=== PATIENT | female | born 1980 | race Caucasian/White ===

== ENCOUNTER 2018-02-11 08:18 | Emergency (ER) | payer OTHER ==
[~2018-02-11] VITALS: Ht 157.5 cm; Wt 83.0 kg
[2018-02-11] MEDS ORDERED: ALBU18HF INH (08:52)
[2018-02-11] MEDS ORDERED: PANT40TA5 PO (08:52)
[2018-02-11 09:50] LABS: BASOPHILS # (AUTO) 0.05 x10^3/uL (0-0.1); BASOPHILS % (AUTO) 1 % (0-1); EOSINOPHILS # (AUTO) 0.23 x10^3/uL (0-0.4); EOSINOPHILS % (AUTO) 4 % (1-7); LYMPHOCYTES # (AUTO) 1.69 x10^3/uL (1-3.4); LYMPHOCYTES % (AUTO) 31 % (22-44); MD NO; MEAN CORPUSCULAR HEMOGLOBIN 21.5 pg (27.0-34.8); MEAN CORPUSCULAR HGB CONC 30.9 g/dL (32.4-35.8); MEAN CORPUSCULAR VOLUME 69.7 fL (80-100); MEAN PLATELET VOLUME 7.7 fL (7.4-10.4); MONOCYTES # (AUTO) 0.33 x10^3/uL (0.2-0.8); MONOCYTES % (AUTO) 6 % (2-9); NEUTROPHILS # (AUTO) 3.14 x10^3/uL (1.8-6.8); NEUTROPHILS % (AUTO) 58 % (42-75); PLATELET COUNT 363 x10^3/uL (130-400); RED CELL DISTRIBUTION WIDTH 19.7 % (9.6-15.2)
[2018-02-11 09:54] LABS: MICROSCOPIC INDICATED
[2018-02-11 09:55] LABS: CULTURE INDICATED? YES
[2018-02-11 09:55] LABS: ALANINE AMINOTRANSFERASE 50 U/L (12-78); ALBUMIN 3.7 g/dL (3.4-5.0); ANION GAP 6 mmol/L (5-15); CALCIUM 8.3 mg/dL (8.5-10.1); CHLORIDE 107 mmol/L (98-107)
[2018-02-11 09:58] LABS: % IRON SATURATION 9 % (20-55); ALKALINE PHOSPHATASE 85 U/L (45-117); BILIRUBIN,TOTAL 1.1 mg/dL (0.2-1.0); CREATININE 0.73 mg/dL (0.55-1.02); IRON LEVEL 43 mcg/dL (50-170); TOTAL IRON BINDING CAPACITY 494 mcg/dL (250-450); TOTAL PROTEIN 7.6 g/dL (6.4-8.2)
[2018-02-11 10:03] LABS: INTERNATIONAL NORMALIZED RATIO 1.03 (0.93-1.1); PROTHROMBIN TIME 10.9 Seconds (9.6-11.5)
[2018-02-11 10:17] VITALS: BP 114/81
== END 2018-02-11 11:36 | disposition home or self-care (01) ==
LOC: ED 11:13
DX: D50.9 Iron deficiency anemia, unspecified (principal); R63.0 Anorexia
CPT/HCPCS: 36415; 71045; 80053; 81001; 82728; 83540; 83550; 84443; 84703; 85025; 85610; 85730; 87086; 93005; 99284

== ENCOUNTER → 2018-09-04 | Outpatient (CLI) | payer OTHER ==
[~2018-09-04] MED LIST: ALBU18HF INH; PANT40TA5 PO
== END | disposition home or self-care (01) ==
LOC: RAD 07:45
PROVIDERS: ATTEND Physician Assistant
DX: K21.9 Gastro-esophageal reflux disease without esophagitis (principal); K44.9 Diaphragmatic hernia without obstruction or gangrene; Z98.890 Other specified postprocedural states
CPT/HCPCS: 74241